=== PATIENT | male | born 2000 | race African-American/Black ===

== ENCOUNTER 2022-08-22 21:40 | Emergency (ER) | payer SELFPAY ==
[2022-08-22] MEDS ORDERED: Acetaminophen 500 MG TAB ONE (22:27)
== END 2022-08-22 22:28 | disposition home or self-care (01) ==
LOC: CSHERS 21:40
DX: J06.9 Acute upper respiratory infection, unspecified (principal); F17.290 Nicotine dependence, other tobacco product, uncomplicated; Z20.822 Contact with and (suspected) exposure to COVID-19
CPT/HCPCS: 99284; U0003; U0005